=== PATIENT | male | born 1980 | race Two or more races ===

== ENCOUNTER 2024-04-19 19:10 | Emergency (ER) | payer MEDICAID, SELFPAY ==
[2024-04-19 19:20] VITALS: BP 145/97; PULSE 103; RESP 20; TEMP 36.7; O2SAT 100
[2024-04-19 19:29] VITALS: BP 145/67; PULSE 109; PULSE 114; RESP 19; RESP 20; O2SAT 96; O2SAT 98; BMI 31.1
[2024-04-19 19:33] VITALS: BMI 31.1
--- NOTE | 2024-04-19 19:33 | PD.EDABDPN ---
ED Abdominal Pain RME/HPI General Chief Complaint: Abdominal Pain Stated complaint: ABD PAIN, N/V Time seen by provider: 04/19/24 19:30 Arrival date/time: 04/19/24 19:10 RME / HPI RME / HPI narrative: Dr. Waddell?s Main ED Evaluation: 43yo male with pmhx HLD, elevated LFTs BIBA from home presents to the ED for complaints of N/V/D and lower abdominal cramping. Patient states he started taking Wegovy on 04/13/24 for weight loss. He states he's been having constant nausea, vomiting, diarrhea, and lower abdominal cramping since. He reports associated shortness of breath and chills. He denies any cough, fevers or any other associated symptoms. No known allergies. Related Data Previous Rx's ?Medication ?Instructions ?Recorded ibuprofen 600 mg tablet 1 tab PO Q8HR PRN aches #30 tabs 01/04/15 ibuprofen 600 mg tablet 600 mg PO Q6HR PRN PAIN #30 tabs 01/04/15 famotidine 20 mg tablet (Pepcid) 20 mg PO BID 7 days #14 tabs 04/20/24 ondansetron 4 mg disintegrating 4 mg PO Q6H PRN nausea and 04/20/24 tablet vomiting #14 tabs Allergies Allergy/AdvReac Type Severity Reaction Status Date / Time No Known Allergies Allergy Verified 08/17/22 07:47 Review of Systems Review of Systems Systems Reviewed: All systems reviewed, normal except as documented Narrative Review of Systems: Gen: No fever, + chills, no weight loss EYES: No discharge, no visual changes, no pain HEENT: No ear pain, no congestion, no sore throat PULM: + shortness of breath, no cough, no congestion CV: No chest pain, no dyspnea on exertion, no palpitations GI: + nausea, + vomiting, + diarrhea, + pain, no constipation : No frequency, no urgency, no dysuria Musc/skel: No joint pain, no back pain Skin: No rash. Warm and dry. Psyc: No hallucinations, no depression Heme/Lymph: No easy bleeding or bruising tendencies Neuro: No weakness, no headache Past Medical History Social History SMOKING STATUS: Never smoker ED Exam Narrative Physical exam: GENERAL APPEARANCE: alert and oriented x 4, well-developed, well-nourished, no acute distress VITALS: All vitals were reviewed and the pulse ox is 100% on room air, which is normal according to my interpretation. HEENT: Normocephalic, atraumatic; pupils equal, round, reactive to light; EOMI; mucous membranes pink, moist; oropharynx clear NECK: Supple LUNGS: CTABL; no wheezes, no rales, no rhonchi HEART: Tachycardic, regular rhythm; normal S1, S2; no murmurs ABDOMEN: non distended; normal BS; soft, mild generalized tenderness, no guarding, no rebound; no masses, no organomegaly, no hernia BACK: no CVA tenderness EXTREMITIES: atraumatic; no edema NEUROLOGIC: awake; alert and oriented x4; cranial nerves II-XII grossly intact; no focal sensory or motor deficits PSYCHIATRIC: appropriate mood and affect SKIN: warm, dry, normal color; no rashes Course Quality Measures none Orders Category Date Time Status CT Screening NOW Care 04/19/24 22:38 Completed Phytopathologist STAT Care 04/19/24 19:50 Completed Continuous Pulse Oximetry STAT Care 04/19/24 19:50 Completed EKG (ED ONLY) *Do not use* NOW Care 04/19/24 19:49 Completed Insert IV STAT Care 04/19/24 19:49 Completed Miscellaneous Nursing Order NOW Care 04/19/24 21:08 Completed NPO STAT Care 04/19/24 19:[address] abdomen pelvis w con Stat Exams 04/19/24 22:37 Completed EKG (ED Only) Stat Exams 04/19/24 19:49 Ordered US gall bladder Stat Exams 04/19/24 22:37 Completed CBC Stat Lab 04/19/24 19:55 Completed Comprehensive Metabolic Panel Stat Lab 04/19/24 19:55 Completed Drug Screen,Urine Stat Lab 04/19/24 21:10 Completed Lipase Stat Lab 04/19/24 19:55 Completed Magnesium Stat Lab 04/19/24 19:55 Completed Urinalysis Stat Lab 04/19/24 21:10 Completed DiphenhydrAMINE INJ [Benadryl Inj] Med 04/19/24 22:36 Discontinued 12.5 mg IVP X1 ONE Famotidine [Pepcid] Med 04/19/24 19:49 Discontinued 20 mg PO X1 ONE HYDROmorphone INJ [Dilaudid Inj] Med 04/19/24 22:36 Discontinued 0.5 mg IVP X1 ONE Metoclopramide Inj [Reglan Inj] Med 04/19/24 22:36 Discontinued 10 mg IVP X1 ONE Ondansetron Inj [Zofran Inj] Med 04/19/24 19:49 Discontinued 4 mg IV Q1H PRN Sodium Chloride 0.9% 1000 ml [Ns] 1,000 ml Med 04/19/24 19:49 Discontinued IV 999 mls/hr Sodium Chloride 0.9% 1000 ml [Ns] 1,000 ml Med 04/19/24 19:55 Discontinued IV 999 mls/hr Reevaluation(s) Reevaluation #1: Patient states he feels better compared to when he initially came in. Discussed results with the patient and his at bedside. Patient is stable to be discharged home. Time: 02:35 Vital Signs Vital signs: Vital Signs Temperature 98.0 F 04/19/24 19:20 Pulse Rate 103 H 04/19/24 19:20 Respiratory Rate 20 04/19/24 19:20 Blood Pressure 145/97 H 04/19/24 19:20 Pulse Oximetry (%) 100 04/19/24 19:20 Abdominal Pain MDM MDM Narrative MDM Narrative:: Scribe Attestation: 04/19/24 - Kayla Melton am scribing for and in the presence of Dr. Waddell. Patient data External records reviewed:: [facility] previous records (Per chart review, patient has no relevant previous ED visits to this facility.) Clinical information provided by:: patient Social determinants that could affect healthcare access:: none Patient has the following chronic illnesses:: HLD, elevated LFTs How is presenting disease/condition affected by chronic disease/condition?: uneffected by Evaluation data The following diagnostics were reviewed and interpreted by me:: lab results, radiology exam(s) and EKG tracing(s) Lab and/or radiology exams considered but not ordered:: none Interpretation Summary: WBC count is elevated at 16.3, CMP is normal, Lipase is normal, UA shows the patient is dehydrated, UDS is negative, according to my interpretation. EKG done at 2249, sinus tachycardia, rate of 108, left axis deviation, no ectopy, no STEMI, according to my interpretation. -------- [facility] Report Signed Patient: NAIF ANDREW Vdancer. Record#: [id number] Birthdate: 1980 Age/Sex: 43 / M Location: [facility] Attending Dr: Ordering Physician: Warren Waddell MD Date of Service: 04/19/24 Procedure(s): CT abdomen pelvis w con Accession Number(s): [id number] cc: Jesus Hogue MD; NO PRIMARY/FAMILY,PHYSICIAN; Warren Waddell MD~ Examination: CT abdomen with intravenous contrast CT pelvis with intravenous contrast 2-D coronal reconstructions 2-D sagittal reconstructions Date and time of exam:April 19, 2024 10:59 PM Indications: Onset acute right-sided abdominal pain beginning one week ago CTDI: vol (mGy) 7.80 DLP: (mGycm) 553 Technique: Multiple axial sections of the abdomen and pelvis have been obtained. 64 slice high-resolution scanner used. 3 mm axial sections have been obtained, post intravenous injection 60 cc [id number] 2-D sagittal, coronal reconstructions obtained. Low dose protocols were performed. One or more of the following dose reduction techniques were used; automated exposure control, adjustment of the mA and/or KV according to patient size, use of iterative reconstruction technique. Findings: Diffuse fatty infiltration throughout the liver No focal liver lesion Spleen is not enlarged No pancreatic mass, no peripancreatic edema No gallstones Gallbladder wall is not thickened Abdominal aorta normal size No adrenal mass lesion No renal or ureteral calculi, no hydronephrosis Appendix is not enlarged and not inflamed No pericecal inflammatory change No bowel obstruction No diverticulitis Normal seminal vesicles No prostatomegaly Contracted urinary bladder Healed left femur fracture Impression: No renal or ureteral calculi, no hydronephrosis Normal appendix No bowel obstruction diverticulitis or free air Dictated By: Jesus Hogue MD Signed By: <Electronically signed by Jesus Hogue MD in OV> 04/19/24 1558 --------- [facility] Preliminary Report Draft Patient: NAIF ANDREW. Record#: [id number] Birthdate: 1980 Age/Sex: 43 / M Location: [facility] Attending Dr: Ordering Physician: Date of Service: Procedure(s): Accession Number(s): cc: ~ Right upper quadrant abdominal ultrasound with Limited Doppler. April 19, 2024 at 2345 hours Clinical history: Nausea, vomiting, diarrhea with upper abdominal/epigastric pain. No prior study is available for comparison. Findings: The liver is mildly enlarged measuring 17 cm and demonstrates heterogeneous echotexture with irregular contour. There is a hypoechoic lesion in the right lobe of the liver demonstrating vascularity, measuring 5.6 x 4.2 x 5.5 cm. No intrahepatic biliary ductal dilatation. The main portal vein is patent and demonstrates hepatopetal flow. The gallbladder wall is mildly thickened measuring 4 mm. No gallbladder calculus or pericholecystic fluid is demonstrated. Sonographic Coyle sign is not reported by the technologist's note. The common bile duct is normal in caliber at 4.6 mm. The pancreas appears mildly prominent. The inferior vena cava is obscured by bowel gas. Impression: Mild gallbladder wall thickening, which may be related to chronic liver disease. No gallbladder calculus, pericholecystic fluid or biliary ductal dilatation. Suggest follow-up with HIDA scan, if clinically indicated. Mildly prominent pancreas, the possibility of pancreatitis cannot be excluded. Findings suggestive of hepatic parenchymal disease. Hypoechoic lesion in the liver, of indeterminate etiology. Recommend follow-up with CT for further evaluation. Report Electronically Signed By: J Luis Rodarte 04/20/2024 2:05:58 AM [EST] Medications / Prescriptions Medications or Prescriptions considered but not ordered:: none Medication administrations:: Medication Administration History Discontinued Medications Diphenhydramine HCl (Diphenhydramine Inj 50 Mg/Ml Vial) 12.5 mg IVP X1 ONE Stop: 04/19/24 22:37 Last Admin: 04/19/24 22:47 Dose: 12.5 mg Documented By: CB Famotidine (Famotidine 20 Mg Tablet) 20 mg PO X1 ONE Stop: 04/19/24 19:50 Last Admin: 04/19/24 20:14 Dose: 20 mg Documented By: STACY Hydromorphone HCl (Hydromorphone Inj 2 Mg/Ml Vial) 0.5 mg IVP X1 ONE Stop: 04/19/24 22:37 Last Admin: 04/19/24 22:48 Dose: 0.5 mg Documented By: ZION Sodium Chloride (Ns) 1,000 mls @ 999 mls/hr IV .Q1H1M ONE Stop: 04/19/24 20:49 Last Infusion: 04/19/24 21:56 Dose: Infused Documented By: Admin: 04/19/24 20:12 Dose: 999 mls/hr Documented By: EE Sodium Chloride (Ns) 1,000 mls @ 999 mls/hr IV .Q1H1M ONE Stop: 04/19/24 20:55 Last Infusion: 04/19/24 21:55 Dose: Infused Documented By: Admin: 04/19/24 20:14 Dose: 999 mls/hr Documented By: EE Metoclopramide HCl (Metoclopramide Inj 5 Mg/Ml Vial 2 Ml) 10 mg IVP X1 ONE; Protocol Stop: 04/19/24 22:37 Last Admin: 04/19/24 23:16 Dose: 10 mg Documented By: EE Ondansetron HCl (Ondansetron Inj 2 Mg/Ml Inj 2 Ml) 4 mg IV Q1H PRN PRN Reason: PERSISTENT NAUSEA OR VOMITING see above Consultations Consultation(s) initiated? (list below): No Diagnosis Differential diagnosis abdominal pain: gastroenteritis and other (viral syndrome, dehydration, electrolyte abnormality) Most likely diagnosis given after review of the tests above:: see below Admission Indicated Admission indicated?: not indicated Admission Request Was there a request for admission?: No Disposition Plan Disposition Plan: Discharge Discharge Attestation Discharge Attestation: The patient and all family members were given an opportunity to ask questions and understood the discharge instructions. Discharge instructions specifically effects, indications for sooner follow up or return to the emergency department, and the expected course of current diagnosis. Patient condition: Stable Discharge Plan Plan Patient Disposition: HOME (Self Care) Disposition Comment: Stable for discharge Patient condition on transfer: Stable Prescriptions/Referrals Prescriptions/Med Rec: New ondansetron 4 mg tablet,disintegrating 4 mg PO Q6H PRN (Reason: nausea and vomiting) Qty: 14 0RF famotidine [Pepcid] 20 mg tablet 20 mg PO BID 7 Days Qty: 14 0RF No Action ibuprofen 600 MG tablet 1 tab PO Q8HR PRN (Reason: aches) Qty: 30 0RF ibuprofen 600 MG tablet 600 mg PO Q6HR PRN (Reason: PAIN) Qty: 30 0RF Referrals: No Primary/Family,Physician [Primary Care Provider] - In 1 week Problem List Clinical Impression: Acute viral syndrome, Vomiting, Diarrhea Patient/Caregiver Discharge Instructions Discharge Activity: activity as tolerated Education Materials: Self-Care for Vomiting and Diarrhea, ED Diet for Vomiting or ..., ED Viral Syndrome (Adult), ED Vomiting (Adult) Additional Instructions: Please follow-up with your primary care doctor within the next several days As always if you feel like you are not getting better within the next couple of days or if you feel like you are worsening in any way you should return to the emergency department. There is a prescription for a medicine called ondansetron at your pharmacy. This is antivomiting medicine that goes underneath your tongue. Also you have a prescription for a medicine called Pepcid. You should take this twice a day for the next week. This is to calm your stomach down. Print Language: Slovak Stand Alone Forms: Parul Award Info., Patient Portal Info Letter
--- NOTE | 2024-04-19 19:45 | PC.NURSE ---
pt bib ems with c/o n/v/d since yest. per pt he began taking wegovy on 04/13, and symtoms began 2 days ago worsening yest. pt states hes had vomiting/diarrhea 6x a day. Zofran 8mg iv was given by ems. pt a/ox3. dr jansen at bedside assessing pt at this time. call light within reach. pt updated on care plan. plan of care ongoing.
[2024-04-19 20:01] LABS: Basophils % (Auto) 0 % (0-2.5); Eosinophils # (Auto) 0.2 Thou/mm3 (0.0-0.5); Eosinophils % (Auto) 1 % (0-10); Hematocrit 46.1 % (41.0-53.0); Hemoglobin 16.1 g/dL (13.5-16.0); Immature Granulocytes % (Auto) 0 % (0-0); Immature Granulocytes Auto 0.04 Thou/mm3 (0.00-0.00); Lymphocytes # (Auto) 1.5 Thou/mm3 (1.0-4.8); Lymphocytes % (Auto) 9 % (10-50); Mean Corpuscular HGB Conc 34.9 g/dl (31.0-37.0); Mean Corpuscular Hemoglobin 31.3 pg (25.0-35.0); Mean Corpuscular Volume 90 fL (80-100); Monocytes # (Auto) 0.9 Thou/mm3 (0.0-0.8); Monocytes % (Auto) 6 % (0-12); Neutrophils # (Auto) 13.7 Thou/mm3 (1.8-7.7); Neutrophils % (Auto) 84 % (37-80); Nucleated Red Blood Cell % 0 /100 WBC (0); Platelet Count 271 Thou/mm3 (140-440); RDW Standard Deviation 40.6 fL (35.1-43.9); Red Blood Count 5.15 Miln/mm3 (4.50-5.90); White Blood Count 16.3 Thou/mm3 (3.8-10.6)
[2024-04-19] MEDS: SODIUM CHLORIDE 0.9% 1000 ML 1,000 ML 999 ML IV ×2 (20:12→20:14)
[2024-04-19] MEDS: FAMOTIDINE 20 MG TABLET PO (20:14)
[2024-04-19 20:28] LABS: Alanine Aminotransferase 27 U/L (10-49); Albumin, Serum 4.8 gm/dL (3.5-5.0); Albumin/Globulin Ratio 1.6 (1.2-2.2); Alkaline Phosphatase 117 U/L (46-116); Anion Gap 11 (7-16); Aspartate Amino Transferase 20 U/L (0-34); BUN/Creatinine Ratio 11 Ratio (12-20); Blood Urea Nitrogen 11 mg/dL (9-23); Calcium 9.6 mg/dL (8.3-10.6); Calcium (Corrected) 9.6 mg/dL (8.5-10.1); Carbon Dioxide 22.2 mMol/L (20.0-31.0); Chloride 106 mMol/L (98-107); Glucose 102 mg/dL (74-106); Lipase 32 U/L (12-53); Magnesium 1.8 mg/dL (1.6-2.6); Osmolality,Calculated 276 (275-295); Potassium 3.9 mMol/L (3.4-5.1); Sodium 139 mMol/L (136-145); Total Protein 7.8 gm/dL (5.7-8.2); eGFR > 60 See Note
[2024-04-19 21:19] LABS: Collection Type, Urine Clean Catch
[2024-04-19 21:38] LABS: Bacteria,Urine Rare; Bilirubin,Urine Negative (Negative); Blood,Urine Negative (Negative); Clarity,Urine Clear (Clear/Hazy); Color,Urine Yellow (Lt Yel-Yel); Glucose, Urine Negative (Negative); Ketones,Urine 4+ (Negative); Leukocyte Esterase,Urine Negative (Negative); Nitrite,Urine Negative (Negative); PH,Urine 5.5 (5.0-7.0); Protein,Urine 1+ (Neg - Trace); RBC,Urine 2 /hpf (0-3); Specific Gravity,Urine 1.036 (1.001-1.035); Squamous Epithelial Cell,Urine < 1 /hpf (0-5); Urobilinogen,Urine Negative mg/dL (0.0-1.0); WBC,Urine 1 /hpf (0-5)
--- NOTE | 2024-04-19 22:37 | XR_ITS ---
Examination: Abdomen sonogram, Limited Date and time of exam: April 19, 2024 1145 hrs. Indications: Epigastric pain nausea vomiting beginning one week ago Technique: Real-time harris scale transabdominal sonographic images of the upper abdomen obtained. Findings: Negative for gallstones Gallbladder wall 0.40 cm no edema Common bile duct 0.5 cm Pancreatic head 3.3 cm possible edema Liver 17 cm right lobe liver lesion 5.6 x 4.2 x 5.5 cm Normal hepatopedal portal venous flow IVC obscured by bowel gas Impression: Negative for cholelithiasis Borderline thickening gallbladder wall 0.40 cm, clinical correlation advised, consider HIDA scan or MRCP follow-up as clinically warranted Technologist describes right lobe liver lesion 5.6 cm which is not optimally visualized, consider MRI abdomen liver pre and post contrast follow-up to exclude subtle liver lesion
--- NOTE | 2024-04-19 22:37 | XR_ITS ---
Examination: CT abdomen with intravenous contrast CT pelvis with intravenous contrast 2-D coronal reconstructions 2-D sagittal reconstructions Date and time of exam:April 19, 2024 10:59 PM Indications: Onset acute right-sided abdominal pain beginning one week ago CTDI: vol (mGy) 7.80 DLP: (mGycm) 553 Technique: Multiple axial sections of the abdomen and pelvis have been obtained. 64 slice high-resolution scanner used. 3 mm axial sections have been obtained, post intravenous injection 60 cc [id number]-[id number] 2-D sagittal, coronal reconstructions obtained. Low dose protocols were performed. One or more of the following dose reduction techniques were used; automated exposure control, adjustment of the mA and/or KV according to patient size, use of iterative reconstruction technique. Findings: Diffuse fatty infiltration throughout the liver No focal liver lesion Spleen is not enlarged No pancreatic mass, no peripancreatic edema No gallstones Gallbladder wall is not thickened Abdominal aorta normal size No adrenal mass lesion No renal or ureteral calculi, no hydronephrosis Appendix is not enlarged and not inflamed No pericecal inflammatory change No bowel obstruction No diverticulitis Normal seminal vesicles No prostatomegaly Contracted urinary bladder Healed left femur fracture Impression: No renal or ureteral calculi, no hydronephrosis Normal appendix No bowel obstruction diverticulitis or free air
[2024-04-19 22:43] VITALS: BP 132/93; PULSE 100; RESP 20; TEMP 37.1; O2SAT 98
[2024-04-19] MEDS: DiphenhydrAMINE INJ 50 MG/ML VIAL 12.5 MG IVP (22:47)
[2024-04-19] MEDS: HYDROmorphone INJ 2 MG/ML VIAL 0.5 MG IVP (22:48)
[2024-04-19 23:09] LABS: Amphetamine/Methamp Scrn,U Negative (Negative); Barbiturate Screen,Urine Negative (Negative); Benzodiazepines Screen,Urine Negative (Negative); Benzoylecgonine Screen, Ur Negative (Negative); Fentanyl Screen,Urine Negative (Negative); Opiate Screen,Urine Negative (Negative); THC Screen,Urine Negative (Negative)
[2024-04-19] MEDS: METOCLOPRAMIDE INJ 5 MG/ML VIAL 2 ML 10 MG IVP (23:16)
--- NOTE | 2024-04-20 02:07 | PRELIM_ITS ---
Right upper quadrant abdominal ultrasound with Limited Doppler. April 19, 2024 at 2345 hours Clini ivonne history: Nausea, vomiting, diarrhea with upper abdominal/epigastric pain.No prior study is avail able for comparison. Findings:The liver is mildly enlarged measuring 17 cm and demonstrates heterogen eous echotexture with irregular contour. There is a hypoechoic lesion in the right lobe of the liver demonstrating vascularity, measuring 5.6 x 4.2 x 5.5 cm. No intrahepatic biliary ductal dilatation. T he main portal vein is patent and demonstrates hepatopetal flow. The gallbladder wall is mildly thick ened measuring 4 mm. No gallbladder calculus or pericholecystic fluid is demonstrated. Sonographic Mu rphy sign is not reported by the technologist's note. The common bile duct is normal in caliber at 4. 6 mm. The pancreas appears mildly prominent. The inferior vena cava is obscured by bowel gas.Impress ion:Mild gallbladder wall thickening, which may be related to chronic liver disease. No gallbladder c alculus, pericholecystic fluid or biliary ductal dilatation. Suggest follow-up with HIDA scan, if cli nically indicated. Mildly prominent pancreas, the possibility of pancreatitis cannot be excluded. Fin dings suggestive of hepatic parenchymal disease.Hypoechoic lesion in the liver, of indeterminate etio logy. Recommend follow-up with CT for further evaluation. Report Electronically Signed By: J Luis galvan 04/20/2024 2:05:58 AM [EST]
[2024-04-20 03:17] VITALS: BP 117/82; PULSE 98; RESP 18; TEMP 37.1; O2SAT 98
== END 2024-04-20 03:22 | disposition home or self-care (01) ==
PROVIDERS: Emergency Provider Emergency Medicine
DX: B34.9 Viral infection, unspecified (principal); K82.8 Other specified diseases of gallbladder; K86.89 Other specified diseases of pancreas; K76.9 Liver disease, unspecified
CPT/HCPCS: 36415; 74177; 76705; 80053; 80307; 81001; 83690; 83735; 85025; 96361; 96374; 96375; 99285; A4649; J1200; J2765; J3490; J7030; Q9967; A9270